=== PATIENT | female | born 1980 | race Caucasian/White ===

== ENCOUNTER → 2025-03-09 09:03 | Outpatient (REF) | payer OTHER, SELFPAY | LOC: HWWDC 09:03 | DX: Z12.31 Encounter for screening mammogram for malignant neoplasm of breast (principal) | CPT/HCPCS: 77063; 77067 ==

== ENCOUNTER → 2025-03-17 08:25 | Outpatient (REF) | payer OTHER, SELFPAY | LOC: WDC 08:25 | DX: R92.8 Other abnormal and inconclusive findings on diagnostic imaging of breast (principal) | CPT/HCPCS: 76642 ==